=== PATIENT | female | born 1955 | race Caucasian/White ===

== ENCOUNTER 2016-11-04 09:53 | Day surgery (SDC) | payer OTHER ==
[2016-10-31 11:43] VITALS: BMI 39.7
[2016-11-04] MEDS ORDERED: DEXAMETHASONE SOD PHOSPHATE/PF 10 MG/ML SDV ONE (11:28)
[2016-11-04] MEDS ORDERED: MIDAZOLAM HCL 2 MG/2 ML SINGLE DOSE VIAL ONE ×2 (11:29→12:20)
[2016-11-04] MEDS ORDERED: BUPIVACAINE HCL/PF (5 MG/ML) 30 ML VIAL IJ ONE (11:29)
[2016-11-04] MEDS ORDERED: PROPOFOL 20 ML ONE ×2 (12:20)
--- NOTE | 2016-11-04 13:29 | HP ---
Satellite H - Chief Complaint Chief Complaint: left shoulder pain - Past Medical History Allergies/Adverse Reactions: Allergies Allergy/AdvReac Type Severity Reaction Status Date / Time tramadol AdvReac Intermediate INSOMNIA Verified 11/04/16 10:51 oxycodone AdvReac Vomiting,ABD Verified 11/04/16 10:51 PAIN - Current Medications Current Medications: Home Medications Medication Instructions Recorded Albuterol Sulfate [Proair 2 inh IH ASDIR PRN 10/31/16 Respiclick] Beclomethasone Dipropionate [Qvar] 2 inh IH BID 10/31/16 Dicyclomine HCl [Bentyl -] 20 mg PO Q6H PRN 10/31/16 Ferrous Sulfate 325 mg PO DAILY 10/31/16 Gabapentin 300 mg PO TID 10/31/16 Lisinopril 10 mg PO DAILY 10/31/16 Meclizine HCl 25 mg PO BID PRN 10/31/16 Omeprazole 40 mg PO DAILY 10/31/16 Hydrocodone/Acetaminophen [Ponce 1 each PO Q6H PRN #40 tablet MDD 4 11/04/16 5-325 Tablet] Satellite Physical Exam - Physical Examination Vital Signs: Vital Signs Period Temp Pulse Resp BP Sys/Gaston Pulse Ox Last 24 Hr 98.4 F 80 16 154/81 98-98 General Appearance: Well Nourished, Well Developed, Alert & Oriented x3 ENT: Clear Lung: Normal air movement Heart: Regular rate & rhythm Extremities: Other (left shoulder- + ttp, decr rom, + empty can, + neer, + flores, nvi MRI + rct) Neurological: Intact, Alert, Oriented Satellite Impression/Plan - Impression/Plan Impression: left shoulder rct Operative Procedure: left shoulder arthroscopy with RCR, SAD Date to be Performed: 11/04/16
--- NOTE | 2016-11-04 13:30 | OP ---
Operative Note - Note: Operative Date: 11/04/16 (jonna) Pre-Operative Diagnosis: left shoulder rct Operation: left shoulder arthroscopy with RCR, SAD Implants: arthrex speedbridge Post-Operative Diagnosis: Same as Pre-op Surgeon: Adriel Bocanegra Recreation Counselor: Urban Zheng Anesthesiologist/DISCIPLINARY HEARING OFFICER: Sam Shabazz Anesthesia: General, Local Specimens Removed: shavings Estimated Blood Loss (mls): 5 Operative Report Dictated: Yes
[2016-11-04] MEDS ORDERED: ONDANSETRON 4 MG/2 ML VIAL IVPUSH PRN (13:56)
[2016-11-04] MEDS ORDERED: PROMETHAZINE HCL 25 MG/1 ML VIAL IVPUSH PRN (13:56)
[2016-11-04] MEDS ORDERED: oxyCODONE HCL 5 MG TABLET PO PRN ×2 (13:56)
[2016-11-04] MEDS ORDERED: LACTATED RINGERS SOLUTION 1,000 ML IV SCH (14:00)
[2016-11-04] MEDS ORDERED: ACETAMINOPHEN 325 MG TABLET (FP) PO SCH (14:00)
[2016-11-04] MEDS ORDERED: ACETAMINOPHEN 325 MG TABLET (FP) ONE (14:09)
[2016-11-04 14:45] VITALS: TEMP 97.5
[2016-11-04] MEDS ORDERED: CEFAZOLIN 1 GM/D5W 50 ML ONE (14:56)
[2016-11-04] MEDS ORDERED: CEFAZOLIN 1 GM/D5W 50 ML IVPB ONE (15:00)
--- NOTE | 2016-11-04 15:04 | SPEC ---
DATE OF OPERATION: 11/04/2016 PREOPERATIVE DIAGNOSIS: Left rotator cuff tear. POSTOPERATIVE DIAGNOSIS: Left rotator cuff tear. PROCEDURE: Arthroscopy left shoulder subacromial debridement of bone and soft tissue and arthroscopic left rotator cuff repair with SpeedBridge. SURGICAL ATTENDING: Adriel Bocanegra M.D. BIG DATA SOFTWARE ENGINEER: FRANCES Werner ANESTHESIA: Scalene and general. CLOSURE: SpeedBridge for cuff, 3-0 nylon for skin. ESTIMATED BLOOD LOSS: Negligible. COMPLICATIONS: None. CONDITION: To recovery room in stable condition. DESCRIPTION OF OPERATIVE PROCEDURE: Patient was taken to the operating room on November 04, 2016. Scalene block as well as general anesthesia was administered by the anesthesiologist. Intravenous Kefzol was administered prophylactically prior to the case. Patient was placed in the beach chair position with all prominences well padded. The left shoulder area was prepped and draped in the usual sterile fashion. First a diagnostic arthroscopy of the glenohumeral joint was performed. A posterior portal was made 2 fingerbreadths below the acromion, first with a 15 blade followed by a blunt trocar. Circumferential exam of the glenohumeral joint revealed the following: Intact glenoid and humeral articular cartilage, intact labrum circumferentially, intact biceps and biceps anchor. There were no loose bodies in the axillary pouch. Intact subscapularis to its insertion. Looking superiorly the shoulder had a rotator cuff tear in a crescent formation. The trocar was removed from the shoulder. Next, the posterior trocar was redirected in the subacromial space. An accessory lateral portal was made using a 15 blade followed by a blunt trocar. An anterior portal was made at the level of the AC joint with a spinal needle, a 15 blade, and a blunt trocar. An extensive bursectomy and debridement of soft tissue encasing the humeral head was performed using the ArthroCare device and the shaver. Extensive bone hanging down from the acromion was debrided using the Acromionizer eric up to the appropriate level. The coracoacromial ligament was identified and detached off the anterior acromion and visualized to drop inferiorly and was further debrided. An acromioplasty was then performed using the Acromionizer eric up to the appropriate level. All particular debris in the shoulder was debrided using the shaver. Soft tissue encasing the rotator cuff was debrided using the shaver and the ArthroCare device exposing the rotator cuff tear beneath. The leading edge of the rotator cuff was debrided using the shaver. The greater tuberosity was cleaned of soft tissue, and a thin layer of bone was removed giving a nice bleeding surface for the rotator cuff repair. Two medial row anchors with pre-loaded FiberTape suture were malleted down at the articular margin and shuttled through the anterior portal. Each anchor had two limbs of the FiberTape suture. Individually they were shuttled back to the lateral portal. They were passed in a fanned-out position through the rotator cuff using the inDinero suture passer. After this was done, one of the posterior sutures was passed more anteriorly, and one of the anterior sutures was passed posteriorly. They were both passed through the eyelet hole of the lateral anchors and then malleted and screwed into place, both anteriorly and posteriorly. This pulled the rotator cuff down and matted it down to the greater tuberosity. The sutures were cut snug. Probing revealed excellent repair of the rotator cuff to the greater tuberosity. The shoulder was irrigated with copious amounts of irrigation. All three portals were closed with 3-0 nylon. A sterile pressure dressing following by a shoulder immobilizer was placed on the left upper extremity. The patient was awakened from anesthesia and transferred to the recovery room in stable condition. No complications. Estimated blood loss was negligible. Benny [id number]
[2016-11-04 16:27] VITALS: BP 122/65; PULSE 63
[2016-11-04] MEDS ORDERED: oxyCODONE HCL 10 MG SUSTAINED ACTING TABLET PO SCH (22:00)
== END 2016-11-04 15:55 | disposition home or self-care (01) ==
LOC: FASU 09:53
PROVIDERS: ATTEND Orthopaedic Surgery
PROC: 0RNK4ZZ Release Left Shoulder Joint, Percutaneous Endoscopic Approach (ICD-10-PCS; 2016-11-04)
PROC: 0LB24ZZ Excision of Left Shoulder Tendon, Percutaneous Endoscopic Approach (ICD-10-PCS; principal; 2016-11-04 12:40)
DX: M75.102 Unspecified rotator cuff tear or rupture of left shoulder, not specified as traumatic (principal)
CPT/HCPCS: 88304-TC; 94760